=== PATIENT | male | born 1990 | race Two or more races ===

== ENCOUNTER 2025-05-11 05:06 | Emergency (ER) | payer MEDICAID, SELFPAY ==
[2025-05-11 05:07] VITALS: BP 156/95; PULSE 76; RESP 18; TEMP 37.1; O2SAT 97
--- NOTE | 2025-05-11 05:18 | EDRME_ITS ---
Rapid Medical Screening Exam [facility] Arrival date/time: 05/11/25 05:06 35M with no significant PMH presents to ED with 2 days of sore throat, cough (possibly with blood) and some CP/SOB. Chief Complaint: Flu Like Symptoms Vital signs: Vital Signs Temperature 98.8 F 05/11/25 05:07 Pulse Rate 76 05/11/25 05:07 Respiratory Rate 18 05/11/25 05:07 Blood Pressure 156/95 H 05/11/25 05:07 Pulse Oximetry (%) 97 05/11/25 05:07 Oxygen Delivery Method Room Air 05/11/25 05:07 Exam: Red oropharynx. Clear lungs. Mildly prolonged expiration. Clinical Impression: URI vs CAP vs PE vs strep throat vs TB/Valley Fever
--- NOTE | 2025-05-11 05:18 | XR_ITS ---
EXAMINATION: PA chest single view TECHNIQUE: Upright PA chest single view Date and time: May 11, 2025, 0524 hours INDICATIONS: Sore throat cough and chest pain beginning 2 days ago. FINDINGS: Normal heart size Lungs are clear. Osseous structures are intact IMPRESSION: No active disease
[2025-05-11 06:38] LABS: Strep A Rapid Negative (Negative)
--- NOTE | 2025-05-11 06:53 | PD.EDURI ---
Upper Respiratory Inf. RME/HPI General Chief Complaint: Flu Like Symptoms Stated Complaint: COUGH, SORE THROAT Time Seen by Provider: 05/11/25 06:21 Arrival date/time: 05/11/25 05:06 35-year-old male with no significant medical problem presents to the emergency department if complains of cough and sore throat ongoing x 3 days patient reports nothing symptoms better or worse quality aching in nature Limitations: no limitations RME / HPI RME / HPI Narrative: 05/11/25 05:06 35M with no significant PMH presents to ED with 2 days of sore throat, cough (possibly with blood) and some CP/SOB. Exam: Red oropharynx. Clear lungs. Mildly prolonged expiration. Impression: URI vs CAP vs PE vs strep throat vs TB/[place] Fever Related Data Previous Rx's ?Medication ?Instructions ?Recorded azithromycin 500 mg tablet See Rx Instructions PO .COMPLEX #6 05/11/25 tabs benzonatate 100 mg capsule 100 mg PO TID #14 caps 05/11/25 ibuprofen 600 mg tablet 600 mg PO Q6H #30 tabs 05/11/25 prednisone 20 mg tablet 20 mg PO BID 3 days #6 tabs 05/11/25 Allergies Allergy/AdvReac Type Severity Reaction Status Date / Time No Known Allergies Allergy Verified 05/11/25 05:07 Review of Systems Review of Systems Systems Reviewed: All systems reviewed, normal except as documented Constitutional Constitutional: Reports system reviewed and no additional complaints, except as documented, Denies fever(s) and Denies headache(s) Eyes Eyes: Reports system reviewed and no additional complaints, except as documented and Denies blurry vision ENT Ears, Nose, Mouth, and Throat: Reports system reviewed and no additional complaints, except as documented, Denies headache(s), Denies nasal congestion and Denies nasal discharge Cardiovascular Cardiovascular: Reports system reviewed and no additional complaints, except as documented, Denies chest pain and Denies dyspnea Respiratory Respiratory: Reports system reviewed and no additional complaints, except as documented, Reports chest congestion, Reports cough and Denies dyspnea Gastrointestinal Gastrointestinal: Reports system reviewed and no additional complaints, except as documented and Denies abdominal pain Integumentary/Breasts Skin/Breast: Reports system reviewed and no additional complaints, except as documented and Denies rash Neurologic Neurologic: Reports system reviewed and no additional complaints, except as documented, Reports as per HPI and Denies headache(s) Past Medical History Social History SMOKING STATUS: Current every day smoker ED Exam General Limitations: Present no limitations General appearance: Present alert and in no apparent distress Head Head exam: Present atraumatic, normocephalic and normal inspection Eye Eye exam: Present normal appearance, PERRL and EOMI; Absent conjunctival injection ENT ENT exam: Present normal exam, normal oropharynx and mucous membranes moist Neck Neck exam: Present normal inspection, full ROM and trachea midline Chest Chest inspection: Present normal inspection and symmetric chest wall rise Respiratory Respiratory exam: Present normal lung sounds bilaterally; Absent respiratory distress, wheezes, stridor, accessory muscle use or prolonged expiratory phase Cardiovascular Cardiovascular exam: Present regular rate, normal rhythm and normal heart sounds Abdominal Exam Abdominal exam: Present soft and normal bowel sounds Extremities Exam Extremities exam: Present normal inspection and full ROM Back Exam Back exam: Present normal inspection and full ROM Neurological Exam Neurological exam: Present alert, oriented X3 and CN II-XII intact Psychiatric Psychiatric exam: Present normal affect and normal mood Skin Skin exam: Present warm, dry, intact and normal color Course Quality Measures none Orders Category Date Time Status XR chest 1V portable Stat Exams 05/11/25 05:18 Completed Strep A Rapid Stat Lab 05/11/25 05:21 Completed Vital Signs Vital signs: Vital Signs Temperature 98.8 F 05/11/25 05:07 Pulse Rate 76 05/11/25 05:07 Respiratory Rate 18 05/11/25 05:07 Blood Pressure 156/95 H 05/11/25 05:07 Pulse Oximetry (%) 97 05/11/25 05:07 Oxygen Delivery Method Room Air 05/11/25 05:07 O2 saturation 97% room air within normal limits Upper Respiratory Infection MDM Narrative MDM Narrative:: 35-year-old male with no significant medical problem presents to the emergency department if complains of cough and sore throat ongoing x 3 days patient reports nothing symptoms better or worse quality aching in nature Clinically patient well-appearing does not appear ill or toxic Chest x-ray obtained no acute pneumonic infiltrates noted Patient checked for strep which came back negative Symptoms consistent with URI Patient discharged home in no distress to follow-up with primary care doctor in the next 24 to 48 hours and for any worsening symptoms to return to the ER immediately Patient data External records reviewed:: [facility] previous records Clinical information provided by:: patient Social determinants that could affect healthcare access:: none Patient has the following chronic illnesses:: None How is presenting disease/condition affected by chronic disease/condition?: no chronic disease Evaluation data The following diagnostics were reviewed and interpreted by me:: lab results and radiology exam(s) Lab and/or radiology exams considered but not ordered:: Labs radiology obtained Interpretation Summary: Reviewed by me Medications / Prescriptions Medications or Prescriptions considered but not ordered:: Given Medication administrations:: Given Consultations Consultation(s) initiated? (list below): No Diagnosis Upper Respiratory Differential Diagnosis: upper respiratory infection, otitis media, sinusitis, viral infection and bronchitis Most likely diagnosis given after review of the tests above:: URI Admission Indicated Admission indicated?: not indicated Admission Request Was there a request for admission?: No Disposition Plan Disposition Plan: Discharge Discharge Attestation Discharge Attestation: The patient and all family members were given an opportunity to ask questions and understood the discharge instructions. Discharge instructions specifically effects, indications for sooner follow up or return to the emergency department, and the expected course of current diagnosis. Patient condition: Stable Discharge Plan Plan Patient Disposition: HOME (Self Care) Discharge Disposition comment: Stable Prescriptions/Referrals Prescriptions/Med Rec: New prednisone 20 mg tablet 20 mg PO BID 3 Days Qty: 6 0RF benzonatate 100 mg capsule 100 mg PO TID Qty: 14 0RF ibuprofen 600 mg tablet 600 mg PO Q6H Qty: 30 0RF azithromycin 500 mg tablet See Rx Instructions .ROUTE .COMPLEX Qty: 6 0RF Rx Instructions: take 500 mg today (day 1), then 250 mg for 4 days (days 2-5) Referrals: Chano Mejia MD [Primary Care Provider, Family Practice] - In 1 week Problem List Clinical Impression: Upper respiratory infection Patient/Caregiver Discharge Instructions Education Materials: Preventing Common Respiratory ... Additional Instructions: Please follow up with your primary care doctor in the next 24-48hrs for any worsening symptoms return here immediately Print Language: Latvian Stand Alone Forms: Shari Award Info., Work/School Release, Patient Portal Info Letter PA/[employer] SYSTEM OPERATOR Supervising Physician PA/[employer] MA[employer] SYSTEM OPERATOR Supervising Physician: Dr. Gómez
== END 2025-05-11 07:01 | disposition home or self-care (01) ==
PROVIDERS: Physician Assistant; Emergency Provider Family Medicine; PCP Family Medicine
DX: J06.9 Acute upper respiratory infection, unspecified (principal); F17.200 Nicotine dependence, unspecified, uncomplicated
CPT/HCPCS: 71045; 87651; 99282